=== PATIENT | female | born 1945 | race Caucasian/White ===

== ENCOUNTER → 2016-12-18 | Outpatient (CLI) | payer OTHER ==
[~2016-12-18] MED LIST: ACETAMINOPHEN-1 EAC1 PO; APAP500 PO; APAP650 PO; ASPIRIN EC81 M1 PO; B12INJ; CALCIUM 500 +1 EAC5 PO; CLARITIN10 MG PO; COUMADIN 10MG T10 M1 PO; COUMADIN7.5 MG PO; CRESTOR10 MG PO; DETROL LA4 MG PO; FLAGYL500 MG PO; FLAX OIL1000 MG PO; LEVOTHYROXIN0.075 MG PO; LOSARTAN-HCTZ1 EACH PO; METOCLOPRAMIDE10 MG PO; MICARDIS HCT 41 EACH PO; MOBIC7.5 MG PO; MULTIVITAMINS PO; NEURONTIN 300300 M1 PO; NEXIUM40 MG PO; POTASSIUM20 PO; PRADAXA150 MG PO; REGLAN 10 MG TA10 MG PO; RESTASIS1 EACH OP; SLOW-MAG64 MG PO; TIROSINT75 MCG PO; TRAMADOL 50 MG50 MG PO; VENTOLIN HFA 1818 GM INH; VITCB500GO PO; ZINC CHELATE50 MG PO; [UNRECOGNIZED DRUG - OTHER] TOP
== END ==
LOC: CAT 08:24
DX: J47.9 Bronchiectasis, uncomplicated (principal); J84.10 Pulmonary fibrosis, unspecified

== ENCOUNTER 2017-03-21 11:43 | Emergency (ER) | payer OTHER ==
[~2017-03-21] VITALS: Ht 157.5 cm; Wt 92.1 kg
--- NOTE | ~2017-03-21 | EKG ---
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
[2017-03-21] MEDS ORDERED: NEURONTIN 300300 M1 PO (12:46)
[2017-03-21] MEDS ORDERED: PROBIOTIC1 EAC3 PO (12:53)
[2017-03-21] MEDS ORDERED: TYLENOL ARTHRI650 MG PO (12:54)
[2017-03-21] MEDS ORDERED: REPLENS6.7 GM VAG (12:56)
[2017-03-21] MEDS ORDERED: HYDROCODONE-AP1 EAC6 PO (12:57)
[2017-03-21] MEDS ORDERED: ZPAK PO (13:22)
[2017-03-21] MEDS ORDERED: GUAIFEN-CODEINE10 ML PO (13:22)
[2017-03-21 13:57] VITALS: BP 122/65
== END 2017-03-21 14:02 | disposition home or self-care (01) ==
LOC: ER 11:43
DX: J15.9 Unspecified bacterial pneumonia (principal); I10 Essential (primary) hypertension; E11.9 Type 2 diabetes mellitus without complications; K21.9 Gastro-esophageal reflux disease without esophagitis; J45.909 Unspecified asthma, uncomplicated; E78.00 Pure hypercholesterolemia, unspecified; E03.9 Hypothyroidism, unspecified; Z98.62 Peripheral vascular angioplasty status; Z88.5 Allergy status to narcotic agent; Z88.1 Allergy status to other antibiotic agents; Z88.2 Allergy status to sulfonamides

== ENCOUNTER → 2017-06-10 | Outpatient (CLI) | payer OTHER ==
[~2017-06-10] MED LIST changes: +GUAIFEN-CODEINE10 ML PO; +HYDROCODONE-AP1 EAC6 PO; +PROBIOTIC1 EAC3 PO; +REPLENS6.7 GM VAG; +TYLENOL ARTHRI650 MG PO; +ZPAK PO
== END ==
LOC: CAT 06:34
DX: J47.9 Bronchiectasis, uncomplicated (principal); I25.10 Atherosclerotic heart disease of native coronary artery without angina pectoris; K76.0 Fatty (change of) liver, not elsewhere classified; R91.8 Other nonspecific abnormal finding of lung field

== ENCOUNTER → 2018-05-04 | Outpatient (CLI) | payer OTHER | LOC: CAT 13:35 | DX: J84.10 Pulmonary fibrosis, unspecified (principal); K76.0 Fatty (change of) liver, not elsewhere classified; Z88.8 Allergy status to other drugs, medicaments and biological substances; Z88.2 Allergy status to sulfonamides; Z88.1 Allergy status to other antibiotic agents ==

== ENCOUNTER 2018-07-26 19:04 | Emergency (ER) | payer OTHER ==
[~2018-07-26] VITALS: Ht 154.9 cm; Wt 96.6 kg
[2018-07-26 21:40] VITALS: BP 155/83
== END 2018-07-26 21:20 | disposition home or self-care (01) ==
LOC: ER 19:04
DX: S66.812A Strain of other specified muscles, fascia and tendons at wrist and hand level, left hand, initial encounter (principal); S66.811A Strain of other specified muscles, fascia and tendons at wrist and hand level, right hand, initial encounter; I10 Essential (primary) hypertension; K21.9 Gastro-esophageal reflux disease without esophagitis; J45.909 Unspecified asthma, uncomplicated; E78.00 Pure hypercholesterolemia, unspecified; E03.9 Hypothyroidism, unspecified; E11.43 Type 2 diabetes mellitus with diabetic autonomic (poly)neuropathy; Z88.8 Allergy status to other drugs, medicaments and biological substances; Z88.1 Allergy status to other antibiotic agents; Z91.048 Other nonmedicinal substance allergy status; Z88.2 Allergy status to sulfonamides; W01.0XXA Fall on same level from slipping, tripping and stumbling without subsequent striking against object, initial encounter; Y92.89 Other specified places as the place of occurrence of the external cause; Y93.89 Activity, other specified; Y99.8 Other external cause status